=== PATIENT | female | born 1965 | race American Indian/Alaskan Native ===

== ENCOUNTER 2023-10-29 20:47 | Emergency (ER) | payer SELFPAY ==
[~2023-10-29] VITALS: Ht 165.1 cm; Wt 99.8 kg
[2023-10-29 21:13] LABS: BASOPHILS ABSOLUTE AUTO 0.04 K/mm3 (0.00-0.23); BASOPHILS PERCENT AUTO 0 % (0-2); EOSINOPHILS ABSOLUTE AUTO 0.16 K/mm3 (0.00-0.68); EOSINOPHILS PERCENT AUTO 1 % (0-6); Hematocrit 39.7 % (33.0-51.0); Hemoglobin 13.5 g/dL (11.5-16.0); IMMATURE GRAN ABSOLUTE AUTO 0.07 K/mm3 (0.00-0.10); IMMATURE GRAN PERCENT AUTO 1 % (0-1); LYMPHOCYTES ABSOLUTE AUTO 4.19 K/mm3 (0.84-5.20); LYMPHOCYTES PERCENT AUTO 31 % (21-46); MONOCYTES ABSOLUTE AUTO 0.58 K/mm3 (0.16-1.47); MONOCYTES PERCENT AUTO 4 % (4-13); Mean Corpuscular HGB 29.8 pg (26.0-34.0); Mean Corpuscular Volume 88 fL (80-100); Mean Platelet Volume 9.2 fL (9.1-12.4); NEUTROPHILS ABSOLUTE AUTO 8.53 K/mm3 (1.96-9.15); NEUTROPHILS PERCENT AUTO 63 % (41-73); Platelet Count 314 K/mm3 (150-400); RDW Coefficient Variation 13.7 % (11.7-14.2); RDW Standard Deviation 43.4 fL (35.1-46.3); Red Blood Cell Count 4.53 M/mm3 (3.80-5.20); White Blood Cell Count 13.57 K/mm3 (4.00-11.30)
[2023-10-29] MEDS ORDERED: CARV3.125 (21:29)
[2023-10-29 21:30] LABS: Albumin, Blood 3.4 g/dL (3.4-5.0); Bilirubin, Total 0.8 mg/dL (0.1-1.0); Bun/Creatinine Ratio 29.3 (12.0-20.0); Calcium, Blood 8.6 mg/dL (8.5-10.1); Creatinine, Blood 0.62 mg/dL (0.40-1.00); Globulin, Blood 3.5 g/dL (2.2-4.0); Total Protein, Blood 6.9 g/dL (6.4-8.2)
[2023-10-29] MEDS ORDERED: ALBU90OI (21:30)
[2023-10-29] MEDS ORDERED: METF500C (21:30)
[2023-10-29] MEDS ORDERED: Ipratropium/Albuterol SulF 2.5-0.5MG/3 ML Amp INH ONE (21:55)
[2023-10-30] MEDS ORDERED: Furosemide 20 MG Tab PO ONE (00:40)
[2023-10-30] MEDS ORDERED: ALBU2.5V5 INH (00:42)
== END 2023-10-30 00:58 | disposition home or self-care (01) ==
LOC: ER 20:47
PROVIDERS: Emergency Medicine
DX: I11.0 Hypertensive heart disease with heart failure (principal); I50.9 Heart failure, unspecified; E11.9 Type 2 diabetes mellitus without complications; J45.909 Unspecified asthma, uncomplicated; Z88.0 Allergy status to penicillin; Z88.2 Allergy status to sulfonamides; Z79.899 Other long term (current) drug therapy; Z79.84 Long term (current) use of oral hypoglycemic drugs
CPT/HCPCS: 71046; 80053; 83690; 83880; 84484; 85025; 94640; 94664

== ENCOUNTER → 2023-12-01 | Outpatient (CLI) | payer OTHER ==
[~2023-12-01] MED LIST: ALBU2.5V5 INH; ALBU90OI; CARV3.125; METF500C
[2023-12-01 14:36] LABS: Source, Urine Clean Catch
[2023-12-01 14:37] LABS: Bacteria Not Seen /hpf; Red Blood Cells, Urine 0-2 /hpf (0-2); Squamous Epithelial Cells Few /hpf (Few); White Blood Cells, Urine 0-2 /hpf (0-5)
== END | disposition home or self-care (01) ==
LOC: LAB SHORT 14:34 → LAB 14:34
PROVIDERS: Family Medicine
DX: R35.0 Frequency of micturition (principal)
CPT/HCPCS: 81015; 87086

== ENCOUNTER 2024-06-11 06:15 | Inpatient (IN) | payer OTHER ==
[~2024-06-11] VITALS: Ht 165.1 cm; Wt 102.1 kg
[~2024-06-11 06:15] MED LIST changes: -CARV3.125; +CARV3.125 PO; -METF500C; +METF500C PO
[2024-06-11] MEDS ORDERED: Meclizine HCl 25 MG Tab PO ONE (06:45)
[2024-06-11 06:53] LABS: BASOPHILS ABSOLUTE AUTO 0.04 K/mm3 (0.00-0.23); BASOPHILS PERCENT AUTO 0 % (0-2); EOSINOPHILS ABSOLUTE AUTO 0.13 K/mm3 (0.00-0.68); EOSINOPHILS PERCENT AUTO 1 % (0-6); Hematocrit 41.7 % (33.0-51.0); Hemoglobin 14.4 g/dL (11.5-16.0); IMMATURE GRAN ABSOLUTE AUTO 0.04 K/mm3 (0.00-0.10); IMMATURE GRAN PERCENT AUTO 0 % (0-1); LYMPHOCYTES PERCENT AUTO 34 % (21-46); MONOCYTES ABSOLUTE AUTO 0.49 K/mm3 (0.16-1.47); MONOCYTES PERCENT AUTO 5 % (4-13); Mean Corpuscular HGB 30.3 pg (26.0-34.0); Mean Corpuscular HGB Conc 34.5 g/dL (31.5-36.5); Mean Corpuscular Volume 88 fL (80-100); Mean Platelet Volume 9.3 fL (9.1-12.4); NEUTROPHILS ABSOLUTE AUTO 5.79 K/mm3 (1.96-9.15); NEUTROPHILS PERCENT AUTO 59 % (41-73); Platelet Count 288 K/mm3 (150-400); RDW Coefficient Variation 13.1 % (11.7-14.2); RDW Standard Deviation 42.1 fL (35.1-46.3); Red Blood Cell Count 4.76 M/mm3 (3.80-5.20); White Blood Cell Count 9.79 K/mm3 (4.00-11.30)
[2024-06-11 07:11] LABS: Albumin, Blood 3.6 g/dL (3.4-5.0); Bilirubin, Total 0.5 mg/dL (0.1-1.0); Bun/Creatinine Ratio 25.3 (12.0-20.0); Creatinine, Blood 0.59 mg/dL (0.40-1.00); Globulin, Blood 3.6 g/dL (2.2-4.0); Magnesium, Blood 1.8 mg/dL (1.6-2.4); Potassium, Blood 4.1 mmol/L (3.5-5.5); Total Protein, Blood 7.2 g/dL (6.4-8.2)
[2024-06-11] MEDS ORDERED: NS 1,000 ML IV SCH (07:35)
[2024-06-11] MEDS ORDERED: Carvedilol 3.125 MG Tab PO ONE (09:00)
[2024-06-11] MEDS ORDERED: Aspirin 325 MG Tab PO ONE (09:05)
[2024-06-11] MEDS ORDERED: HydrALAZINE HCl 20 MG / ML 1ML Vial IV PRN (10:00)
[2024-06-11] MEDS ORDERED: HydrALAZINE HCl 20 MG / ML 1ML Vial IV ONE (10:00)
[2024-06-11] MEDS ORDERED: Carvedilol 6.25 MG Tab PO SCH (10:00)
[2024-06-11] MEDS ORDERED: Furosemide 10 MG / ML 2ML Vial IV SCH (10:00)
[2024-06-11] MEDS ORDERED: Diazepam 5 MG Tab PO ONE (10:00)
[2024-06-11] MEDS ORDERED: Clopidogrel Bisulfate 300 MG Cap PO ONE (10:20)
[2024-06-11] MEDS ORDERED: FLU VACC TS2024-25(6MOS UP)/PF 45 MCG/0.5 ML SYRINGE IM SCH (10:25)
[2024-06-11] MEDS ORDERED: Spironolactone 25 MG Tab PO SCH (12:00)
[2024-06-11] MEDS ORDERED: Carvedilol 3.125 MG Tab PO SCH (12:00)
[2024-06-11] MEDS ORDERED: Empagliflozin 10 MG TAB PO SCH (12:00)
[2024-06-11 14:27] LABS: Anti-Xa UFH, PHA Monitoring <0.10 IU/mL; International Normalized Ratio 0.99; Prothrombin Time Results 10.6 Sec (9.7-11.5)
--- NOTE | 2024-06-11 16:30 | NUR ---
PT TO ROOM FROM ED. AT BEDSIDE.
[2024-06-11 16:36] VITALS: BP 178/84
[2024-06-11] MEDS ORDERED: SYMBICORT 80-10.2 GM INH (16:36)
[2024-06-11] MEDS ORDERED: ALBU2.5V5 INH (16:38)
[2024-06-11] MEDS ORDERED: FURO20 PO (16:42)
[2024-06-11] MEDS ORDERED: Diazepam 5 MG Tab PO SCH (17:55)
--- NOTE | 2024-06-11 19:21 | NUR ---
SHIFT SUMMARY PT IS A/OX4 AND VERY ANXIOUS. SBA WITH CANE TO THE BATHROOM D/T DIZZINESS. PT REPORTS TO CHEST PAIN SINCE ADMISSION HOWEVER STILL EXPERIENCING DIZZINESS ESPECIALLY WHEN TURNING HEAD OR NECK AND LOOKING DOWN WHILE AMBULATING. ON TELE RUNNING NORMAL SINUS RYTHYM IN THE S. MRI EXPECTED THIS EVENING.
[2024-06-11 20:13] VITALS: BP 183/102
[2024-06-11 21:30] VITALS: BP 176/72
[2024-06-12 00:26] VITALS: BP 196/101
[2024-06-12 03:46] VITALS: BP 149/95
--- NOTE | 2024-06-12 04:22 | NUR ---
SHIFT SUMMARY 59 YR F ADMITTED ON 06/11/24. FULL CODE. PER IMAGING, MRI WAS NOT ABLE TO BE DONE THIS SHIFT AND INSTEAD WILL BE DONE IN THE A.M. PT IS VERY ANXIOUS FOR THE RESULTS. HER BP GOT UP TO 196/101 @ 0030 AND PRN HYDRALYZINE WAS GIVEN. BP WENT DOWN TO 149/95 @ 0345. PT STATES SHE HAS BEEN ABLE TO SLEEP OFF AND ON AND SHE FEELS BETTER AFTER SLEEPING. BECAUSE OF HER ANXIETY SHE ASKED HER TO COME BACK TO THE HOSPITAL AND STAY THE NIGHT. HE DID, AND APPEARS TO BE A GREAT COMFORT TO HER. SHE IS PLEASANT AND COOPERATIVE WITH CARE. CALLS APPROPIATELY FOR ASSISTANCE. BED IN LOW POSITION AND CALL LIGHT IN REACH.
[2024-06-12 07:52] VITALS: BP 152/100
[2024-06-12] MEDS ORDERED: Carvedilol 6.25 MG Tab PO SCH (08:00)
[2024-06-12] MEDS ORDERED: Sacubitril/Valsartan 24 MG-26 MG Tab PO SCH (09:00)
[2024-06-12] MEDS ORDERED: Torsemide 20 MG TAB PO SCH (09:00)
[2024-06-12] MEDS ORDERED: Aspirin 81 MG Chew PO SCH (09:00)
[2024-06-12] MEDS ORDERED: Spironolactone 25 MG Tab PO SCH (09:00)
[2024-06-12] MEDS ORDERED: Aspirin 325 MG Tab PO SCH (09:00)
[2024-06-12 10:09] VITALS: BP 183/83
[2024-06-12 10:51] VITALS: BP 161/84
[2024-06-12] MEDS ORDERED: Meclizine HCl 25 MG Tab PO PRN (11:40)
[2024-06-12 12:31] LABS: Bun/Creatinine Ratio 20.9 (12.0-20.0); Creatinine, Blood 0.57 mg/dL (0.40-1.00); Phosphorus, Blood 3.7 mg/dL (2.5-4.9); Potassium, Blood 3.6 mmol/L (3.5-5.5)
[2024-06-12] MEDS ORDERED: SOAANZ20 MG PO (13:05)
[2024-06-12] MEDS ORDERED: JARDIANCE10 MG PO (13:05)
[2024-06-12] MEDS ORDERED: MECL25 PO (13:06)
[2024-06-12] MEDS ORDERED: ENTRESTO 24 MG1 EACH PO (13:06)
[2024-06-12] MEDS ORDERED: SPIR25 PO (13:07)
--- NOTE | 2024-06-12 15:30 | NUR ---
PT DISCHARGED TO HOME WITH . DISCHARGE INSTRUCTIONS PROVIDED AND EDUCATED ON. ALL VALUABLES RETURNED AND SENT HOME WITH THE PT. MEDICATIONS FAXED TO [facility].
[2024-06-12] MEDS ORDERED: Carvedilol 3.125 MG Tab PO SCH (17:00)
== END 2024-06-12 16:57 | disposition home or self-care (01) | DRG 280 ==
LOC: ER 06:15 → ICUE 10:22 → MEDS 13:07
PROVIDERS: Student in an Organized Health Care Education/Training Program; ADMIT Hospitalist
DX: I11.0 Hypertensive heart disease with heart failure (principal); I50.21 Acute systolic (congestive) heart failure; I21.A1 Myocardial infarction type 2; J45.909 Unspecified asthma, uncomplicated; I45.10 Unspecified right bundle-branch block; F41.9 Anxiety disorder, unspecified; R26.81 Unsteadiness on feet; F32.A Depression, unspecified; E11.9 Type 2 diabetes mellitus without complications; M10.9 Gout, unspecified; M79.7 Fibromyalgia; Z96.642 Presence of left artificial hip joint; I16.0 Hypertensive urgency; I42.0 Dilated cardiomyopathy; I27.20 Pulmonary hypertension, unspecified; Z87.891 Personal history of nicotine dependence; Z88.0 Allergy status to penicillin; Z79.899 Other long term (current) drug therapy; Z88.2 Allergy status to sulfonamides; Z79.84 Long term (current) use of oral hypoglycemic drugs; Z79.51 Long term (current) use of inhaled steroids; Z98.890 Other specified postprocedural states
CPT/HCPCS: 36415; 70450; 70496; 70498; 70551; 71046; 80048; 80053; 82947; 83735; 83880; 84100; 84484; 85025; 85520; 85610; 85730; 93005; 93010; 93306; 94760; 97162; 97530; 99285-25; A9270; J0360; J1940; J7030; Q9967

== ENCOUNTER 2024-06-28 11:04 | Emergency (ER) | payer OTHER ==
[~2024-06-28] VITALS: Ht 165.1 cm; Wt 102.1 kg
[~2024-06-28 11:04] MED LIST changes: +ENTRESTO 24 MG1 EACH PO; +FURO20 PO; +JARDIANCE10 MG PO; +MECL25 PO; +SOAANZ20 MG PO; +SPIR25 PO; +SYMBICORT 80-10.2 GM INH
[2024-06-28] MEDS ORDERED: LASIX20 M2 PO (11:25)
[2024-06-28 11:38] LABS: Source, Urine Clean Catch
[2024-06-28] MEDS ORDERED: Meclizine HCl 25 MG Tab PO ONE (12:00)
[2024-06-28] MEDS ORDERED: Diazepam 5 MG Tab PO ONE (12:05)
[2024-06-28 12:23] LABS: Appearance, Urine Hazy (Clear); Bilirubin, Urine Neg (Neg); Blood, Urine Neg (Neg); Glucose Qualitative, Urine Neg (Neg); Ketones, Urine Neg (Neg); Leukocyte Esterase, Urine Neg (Neg); Nitrite, Urine Neg (Neg); Protein, Urine Neg (Neg); Urobilinogen, Urine NORM (Normal)
[2024-06-28 12:51] LABS: Albumin, Blood 3.7 g/dL (3.4-5.0); Albumin/Globulin Ratio 0.9 (0.8-1.8); Bilirubin, Total 0.6 mg/dL (0.1-1.0); Bun/Creatinine Ratio 24.5 (12.0-20.0); Calcium, Blood 8.6 mg/dL (8.5-10.1); Creatinine, Blood 0.49 mg/dL (0.40-1.00); Globulin, Blood 3.9 g/dL (2.2-4.0); Potassium, Blood 3.6 mmol/L (3.5-5.5); Total Protein, Blood 7.6 g/dL (6.4-8.2)
[2024-06-28 13:13] LABS: Color, Urine Pale Yellow (P-Yellow)
[2024-06-28 13:15] LABS: Bacteria Few /hpf; Red Blood Cells, Urine 0-2 /hpf (0-2); Squamous Epithelial Cells Few /hpf (Few)
[2024-06-28 14:00] LABS: BASOPHILS ABSOLUTE AUTO 0.03 K/mm3 (0.00-0.23); BASOPHILS PERCENT AUTO 0 % (0-2); EOSINOPHILS ABSOLUTE AUTO 0.06 K/mm3 (0.00-0.68); EOSINOPHILS PERCENT AUTO 1 % (0-6); Hematocrit 39.4 % (33.0-51.0); Hemoglobin 14.1 g/dL (11.5-16.0); IMMATURE GRAN ABSOLUTE AUTO 0.02 K/mm3 (0.00-0.10); IMMATURE GRAN PERCENT AUTO 0 % (0-1); LYMPHOCYTES ABSOLUTE AUTO 1.82 K/mm3 (0.84-5.20); LYMPHOCYTES PERCENT AUTO 18 % (21-46); MONOCYTES ABSOLUTE AUTO 0.36 K/mm3 (0.16-1.47); MONOCYTES PERCENT AUTO 4 % (4-13); Mean Corpuscular HGB 30.7 pg (26.0-34.0); Mean Corpuscular HGB Conc 35.8 g/dL (31.5-36.5); Mean Corpuscular Volume 86 fL (80-100); Mean Platelet Volume 9.1 fL (9.1-12.4); NEUTROPHILS ABSOLUTE AUTO 8.02 K/mm3 (1.96-9.15); NEUTROPHILS PERCENT AUTO 78 % (41-73); Platelet Count 289 K/mm3 (150-400); RDW Coefficient Variation 12.8 % (11.7-14.2); RDW Standard Deviation 39.7 fL (35.1-46.3); Red Blood Cell Count 4.59 M/mm3 (3.80-5.20); White Blood Cell Count 10.31 K/mm3 (4.00-11.30)
== END 2024-06-28 14:24 | disposition home or self-care (01) ==
LOC: ER 11:04
PROVIDERS: Emergency Medicine; Physician Assistant
DX: H81.10 Benign paroxysmal vertigo, unspecified ear (principal); J45.909 Unspecified asthma, uncomplicated; I11.0 Hypertensive heart disease with heart failure; I50.20 Unspecified systolic (congestive) heart failure; I25.2 Old myocardial infarction; Z88.0 Allergy status to penicillin; Z88.2 Allergy status to sulfonamides; Z79.51 Long term (current) use of inhaled steroids; Z79.899 Other long term (current) drug therapy
CPT/HCPCS: 80053; 81001; 85025; 93005; 93010; 99284-25; A9270